=== PATIENT | female | born 2000 | race Caucasian/White ===

== ENCOUNTER 2023-12-25 10:11 | Emergency (ER) | payer BC ==
--- NOTE | 2023-12-25 10:42 | ED ---
Recheck HPI - General Chief Complaint: Recheck/Abnormal Lab/Rx Stated Complaint: 13 wks preg/high blood pressure Time Seen by Provider: 12/25/23 10:28 Source: patient, RN notes reviewed Mode of arrival: ambulatory Limitations: no limitations - History of Present Illness Initial Comments: This is a 23 year old female with a history of HTN not currently medicated, A1, at approximately 13 weeks gestation who presents emergency department chief complaint of hypertension. Patient states that when she was at work this morning she began to feel like her heart was racing, she felt anxious and flushed, and experienced a mild headache which prompted her to check her blood pressure which was elevated and she had elevated heart rate. Currently, patient states that her headache has subsided but is still experiencing symptoms of her heart racing. Denies symptoms of abdominal pain, vaginal bleeding, nausea, vomiting, fevers, chills, shortness of breath. Patient has been following closely with her OB Dr. Ruiz, an US has confirmed a intrauterine and her next appointment is tomorrow. - Related Data Allergies Allergy/AdvReac Type Severity Reaction Status Date / Time No Known Allergies Allergy Verified 12/25/23 10:23 Review of Systems ROS Statement: Those systems with pertinent positive or pertinent negative responses have been documented in the HPI. ROS Other: All systems not noted in ROS Statement are negative. Past Medical History Past Medical History: No Reported History History of Any Multi-Drug Resistant Organisms: None Reported Past Surgical History: No Surgical Hx Reported Past Psychological History: No Psychological Hx Reported Smoking Status: Current some day smoker Past Alcohol Use History: None Reported Past Drug Use History: None Reported General Exam Limitations: no limitations Course Vital Signs 12/25/23 12/25/23 12/25/23 10:20 10:54 11:10 Temperature 98.2 F Pulse Rate 120 H 113 H Respiratory 18 17 Rate Blood Pressure 152/111 146/99 136/96 O2 Sat by Pulse 100 98 Oximetry Medical Decision Making - Medical Decision Making Was pt. sent in by a medical professional or institution (, PA, WASH BOX OPERATOR, urgent care, hospital, or skilled nursing...) When possible be specific @ -No Did you speak to anyone other than the patient for history (EMS, parent, family, police, friend...)? What history was obtained from this source @ -No Did you review nursing and triage notes (agree or disagree)? Why? @ -I reviewed and agree with nursing and triage notes Were old charts reviewed (outside hosp., previous admission, EMS record, old EKG, old radiological studies, urgent care reports/EKG's, skilled nursing records)? Report findings @ -No old charts were reviewed Differential Diagnosis (chest pain, altered mental status, abdominal pain women, abdominal pain men, vaginal bleeding, weakness, fever, dyspnea, syncope, headache, dizziness, GI bleed, back pain, seizure, CVA, palpatations, mental health, musculoskeletal)? @ -Differential Headache: Migraine, tension, cluster, carbon monoxide, central venous thrombosis, pension karma temporal arteritis, acute closure glaucoma, intercranial hemorrhage, mastoiditis, sinusitis, head injury, this is not meant to be an all-inclusive list. EKG interpreted by me (3pts min.). @ -EKG completed at 1041, sinus tachycardia with a ventricular rate of 120, FL interval 98, QTc 368. No acute signs of ischemia. X-rays interpreted by me (1pt min.). @ -None done CT interpreted by me (1pt min.). @ -None done U/S interpreted by me (1pt. min.). @ -None done What testing was considered but not performed or refused? (CT, X-rays, U/S, labs)? Why? @ -None What meds were considered but not given or refused? Why? @ -None Did you discuss the management of the patient with other professionals (professionals i.e. , PA, WASH BOX OPERATOR, lab, RT, psych nurse, social insurance specialist, data acquisition technician, teacher, global safety officer, manager of case management)? Give summary @ -No Was smoking cessation discussed for >3mins.? @ -No Was critical care preformed (if so, how long)? @ -No Were there social determinants of health that impacted care today? How? (Homelessness, low income, unemployed, alcoholism, drug addiction, transportation, low edu. Level, literacy, decrease access to med. care, longterm, rehab)? @ -No Was there de-escalation of care discussed even if they declined (Discuss DNR or withdrawal of care, Hospice)? DNR status @ -No What co-morbidities impacted this encounter? (DM, HTN, Smoking, COPD, CAD, Cancer, CVA, ARF, Chemo, Hep., AIDS, mental health diagnosis, sleep apnea, morbid obesity)? @ -None Was patient admitted / discharged? Hospital course, mention meds given and route, prescriptions, significant lab abnormalities, going to OR and other pertinent info. @ -Discharged. 23-year-old female 30 weeks gestation with hypertension. On patient's arrival to the emergency department her blood pressure was found to be elevated at the level of 152/111 with a heart rate of 120. Patient is afebrile and O2 sat of 100 on room air. EKG evaluation reveals a sinus tachycardia. Will be evaluated via laboratory studies urinalysis. CBC, CMP unremarkable. Sh not elevated a level of 2.1. [place] [address]. Also is no signs of infection. And continued reevaluation of the patient, her blood p ressure has been decreasing with most recent blood pressure of 145/87 heart rate of 70 completed at 1200. Additionally, on my examination of the patient initially she denied symptoms of headaches, abdominal pain, vaginal bleeding, changes in vision, chest pain or pressure. Patient is stable for discharge at this time. Patient does have an appointment scheduled with her OB tomorrow for further evaluation. Strict return parameters have been discussed and she is verbalized understanding. Case discussed with Dr. Nova. Undiagnosed new problem with uncertain prognosis? @ -No Drug Therapy requiring intensive monitoring for toxicity (Heparin, Nitro, Insulin, Cardizem)? @ -No Were any procedures done? @ -No Diagnosis/symptom? @ -hypertension in Acute, or Chronic, or Acute on Chronic? @ -acute Uncomplicated (without systemic symptoms) or Complicated (systemic symptoms)? @ -uncomplicated Side effects of treatment? @ -No Exacerbation, Progression, or Severe Exacerbation? @ -No Poses a threat to life or bodily function? How? (Chest pain, USA, LA, pneumonia, PE, COPD, DKA, ARF, appy, cholecystitis, CVA, Diverticulitis, Homicidal, Suicidal, threat to staff... and all critical care pts) @ -No - Lab Data Result diagrams: 12/25/23 10:36 12/25/23 10:36 Lab Results 12/25/23 12/25/23 12/25/23 Range/Units 10:36 10:36 10:36 WBC 9.1 (3.8-10.6) k/uL RBC 5.11 (3.80-5.40) m/uL Hgb 13.7 (11.4-16.0) gm/dL Hct 41.5 (34.0-46.0) % MCV 81.2 (80.0-100.0) fL MCH 26.7 (25.0-35.0) pg MCHC 32.9 (31.0-37.0) g/dL RDW 19.1 H (11.5-15.5) % Plt Count 228 (150-450) k/uL MPV 9.0 Neutrophils % 72 % Lymphocytes % 22 % Monocytes % 4 % Eosinophils % 1 % Basophils % 0 % Neutrophils # 6.5 (1.3-7.7) k/uL Lymphocytes # 2.0 (1.0-4.8) k/uL Monocytes # 0.3 (0-1.0) k/uL Eosinophils # 0.1 (0-0.7) k/uL Basophils # 0.0 (0-0.2) k/uL Anisocytosis Slight Microcytosis Slight Sodium 137 (137-145) mmol/L Potassium 3.9 (3.5-5.1) mmol/L Chloride 109 H (98-107) mmol/L Carbon Dioxide 19 L (22-30) mmol/L Anion Gap 9 mmol/L BUN 8 (7-17) mg/dL Creatinine 0.48 L (0.52-1.04) mg/dL Est GFR (CKD-EPI)AfAm >90 (>60 ml/min/1.73 sqM) Est GFR (CKD-EPI)NonAf >90 (>60 ml/min/1.73 sqM) Glucose 82 (74-99) mg/dL Calcium 9.7 (8.4-10.2) mg/dL Total Bilirubin 0.3 (0.2-1.3) mg/dL AST 28 (14-36) U/L ALT 14 (4-34) U/L Alkaline Phosphatase 51 (38-126) U/L Total Protein 7.6 (6.3-8.2) g/dL Albumin 4.6 (3.5-5.0) g/dL TSH 2.100 (0.465-4.680) mIU/L HCG, Quant 74194.5 mIU/mL Urine Color Yellow Urine Appearance Cloudy H (Clear) Urine pH 7.5 (5.0-8.0) Ur Specific [place] 1.026 (1.001-1.035) Urine Protein Trace H (Negative) Urine Glucose (UA) Negative (Negative) Urine Ketones Negative (Negative) Urine Blood Negative (Negative) Urine Nitrite Negative (Negative) Urine Bilirubin Negative (Negative) Urine Urobilinogen <2.0 (<2.0) mg/dL Ur Leukocyte Esterase Large H (Negative) Urine RBC 2 (0-5) /hpf Urine WBC 4 (0-5) /hpf Ur Squamous Epith Cells 11 H (0-4) /hpf Urine Mucus Many H (None) /hpf Disposition Clinical Impression: Hypertension in Disposition: HOME SELF-CARE Condition: Good Instructions (If sedation given, give patient instructions): Hypertension (ED) Additional Instructions: Return to the emergency department for any new or worsening symptoms. Recommend follow-up tomorrow as scheduled with your OB for further evaluation. Is patient prescribed a controlled substance at d/c from ED?: No Referrals: None,Stated [Primary Care Provider] - 1-2 days Time of Disposition: 12:03
[2023-12-25 10:54] VITALS: RESP 17
[2023-12-25 11:05] LABS: Anisocytosis Slight; Basophils % (A) 0 %; Eosinophils # (A) 0.1 k/uL (0-0.7); Eosinophils % (A) 1 %; HCT 41.5 % (34.0-46.0); HGB 13.7 gm/dL (11.4-16.0); Lymphocytes % (A) 22 %; MCH 26.7 pg (25.0-35.0); MCHC 32.9 g/dL (31.0-37.0); MCV 81.2 fL (80.0-100.0); Microcytosis Slight; Monocytes # (A) 0.3 k/uL (0-1.0); Monocytes % (A) 4 %; Neutrophils # (A) 6.5 k/uL (1.3-7.7); Neutrophils % (A) 72 %; Platelet Count 228 k/uL (150-450); RBC 5.11 m/uL (3.80-5.40); RDW 19.1 % (11.5-15.5); WBC 9.1 k/uL (3.8-10.6)
[2023-12-25 11:15] LABS: ALT 14 U/L (4-34); AST 28 U/L (14-36); African American GFR (CKD) >90 (>60 ml/min/1.73 sqM); Albumin 4.6 g/dL (3.5-5.0); Alkaline Phosphatase 51 U/L (38-126); Anion Gap 9 mmol/L; Blood Urea Nitrogen 8 mg/dL (7-17); Calcium 9.7 mg/dL (8.4-10.2); Carbon Dioxide 19 mmol/L (22-30); Chloride 109 mmol/L (98-107); Glucose 82 mg/dL (74-99); Non-African American GFR(CKD) >90 (>60 ml/min/1.73 sqM); Potassium 3.9 mmol/L (3.5-5.1); Sodium 137 mmol/L (137-145); Total Bilirubin 0.3 mg/dL (0.2-1.3); Total Protein 7.6 g/dL (6.3-8.2)
[2023-12-25] MEDS: SODIUM CHLORIDE 0.9% 1,000 ML IV STA (11:20)
[2023-12-25 11:33] LABS: Appearance,Urine Cloudy (Clear); Bilirubin,Urine Negative (Negative); Blood,Urine Negative (Negative); Color,Urine Yellow; Glucose,Urine (UA) Negative (Negative); Ketones,Urine Negative (Negative); Leukocyte Esterase,Urine Large (Negative); Mucus,Urine Many /hpf; Nitrite,Urine Negative (Negative); PH, Urine 7.5 (5.0-8.0); Protein,Urine Trace (Negative); RBC,Urine 2 /hpf (0-5); Specific Gravity,Urine 1.026 (1.001-1.035); Squamous Epithelial Cell,Urine 11 /hpf (0-4); Urobilinogen,Urine <2.0 mg/dL (<2.0); WBC,Urine 4 /hpf (0-5)
[2023-12-25 11:56] LABS: HCG,Quantitative Serum 58247.5 mIU/mL
[2023-12-25 12:36] VITALS: BP 134/93; PULSE 74; TEMP 98.5
== END 2023-12-25 12:39 | disposition home or self-care (01) ==
LOC: EC 10:11
DX: O13.1 Gestational [pregnancy-induced] hypertension without significant proteinuria, first trimester (principal); O99.331 Smoking (tobacco) complicating pregnancy, first trimester; F17.200 Nicotine dependence, unspecified, uncomplicated
CPT/HCPCS: 36415; 80053; 81001; 84443; 84702; 85025; 93005; 96360; 99283

== ENCOUNTER 2024-01-25 19:57 | Emergency (ER) | payer BC | END 2024-01-26 02:10 | disposition home or self-care (01) | LOC: EC 19:57 | CPT/HCPCS: 76805; 76817; 99284 ==